=== PATIENT | female | born 1995 | race Caucasian/White ===

== ENCOUNTER 2017-08-21 08:54 | Emergency (ER) | payer OTHER ==
[~2017-08-21] VITALS: Ht 165.1 cm; Wt 91.0 kg
[2017-08-21 08:57] VITALS: TEMP 36.8; Ht 165.1 cm; Wt 91.0 kg
[2017-08-21 09:06] VITALS: O2SAT 99
[2017-08-21] MEDS ORDERED: DiphenhydrAMINE HCL 50 MG/ML VIAL IV STA (09:08)
[2017-08-21] MEDS ORDERED: METHYLPREDNISOLONE 125 MG VIAL IV STA (09:08)
[2017-08-21] MEDS ORDERED: RANITIDINE HCL 50 MG/100 ML D5W IV STA (09:08)
--- NOTE | 2017-08-21 09:27 | EMERGENCY ROOM VISIT NOTE ---
History Report prepared by Sharath: [address] Under the Supervision of: Dr. Justin Burgos M.D. First contact with patient: 09:04 Chief Complaint: ALLERGIC REACTION Stated Complaint: SOB,ALLERGIC REACTION History of Present Illness The patient is a 22 year old female who presents to the Emergency Room with complaints of an episode of an allergic reaction beginning last night. The patient states that she developed hives last night. She took Benadryl and went to sleep. When she woke up this morning the hives were worse. They are located diffusely across her body. She states that they feel very itchy. The patient also reports shortness of breath and itchy swollen eyes. She did not take any Benadryl this morning. She has been coughing. She denies feeling like her throat is closing. The patient notes that she has allergies to multiple medications but denies any food allergies. She has seen an solid tire tuber machine operator in the past. She does not have an Epi pen. She has not taken any medications that she is allergic to. She is not sure what could be causing her reaction. She denies any changes in her environment. She does report that she was recently taking Avelox and finished her last dose of the medication yesterday. Source of History: patient Onset: last night Position: other (global) Quality: other (itchy) Timing: worsening Associated Symptoms: + cough, + SOB, + rash Review of Systems See HPI for pertinent positives & negatives. A total of 10 systems reviewed and were otherwise negative. Past Medical & Surgical Medical Problems: (1) Asthma Family History No pertinent history stated. Social History Smoking Status: Never Smoker Marital Status: single Housing Status: lives with roommate Occupation Status: [place] [employer] student Current/Historical Medications Scheduled Control Pills ( Control Pills), 1 TAB PO DAILY Mometasone Furoate-Formoterol (Dulera 200/5 Mcg), 1 AER INH BID Prednisone (Prednisone), 50 MG PO DAILY Scheduled PRN Tramadol (Ultram), 50 MG PO Q8H PRN for Pain Allergies Coded Allergies: Albuterol (Unverified Allergy, Severe, TACHYCARDIC,DIZZY,NAUSEAS, 08/21/17) Cephalosporins (Unverified Allergy, Severe, TARGET LESIONS, 08/21/17) Penicillins (Unverified Allergy, Severe, TARGET LESIONS, 08/21/17) Physical Exam Vital Signs Date Time Temp Pulse Resp B/P (MAP) Pulse Ox O2 Delivery O2 Flow Rate FiO2 08/21/17 12:06 90 18 119/78 99 08/21/17 10:40 90 18 112/66 97 Room Air 08/21/17 09:35 92 18 121/83 98 Room Air 08/21/17 09:15 100 08/21/17 09:06 99 Room Air 08/21/17 09:04 Room Air 08/21/17 08:57 36.8 112 20 145/91 99 Room Air Physical Exam GENERAL: Patient is in no acute distress. HEENT: No acute trauma, normocephalic atraumatic, mucous membranes moist, no nasal congestion, no scleral icterus, some edema noted around the eyes. No uvular edema. NECK: No stridor, no adenopathy, no meningismus, trachea is midline. LUNGS: Clear to auscultation bilaterally, no wheeze, no rhonchi, breath sounds equal. HEART: Mildly tachycardic, no murmurs, regular rhythm. ABDOMEN: Soft, nontender, bowel sounds positive, no hernias, no peritonitis. EXTREMITIES: No cyanosis or edema, full range of motion of all the joints without pain or difficulty, no signs for acute trauma. NEUROLOGIC: Oriented x 3, no acute motor or sensory deficits, no focal weakness. SKIN: No jaundice, scattered erythematous slightly raised lesions consistent with urticaria. Medical Decision & Procedures Medications Administered Medications (Trade) Dose Ordered Sig/Ashvin Route Start Time Stop Time Status Last Admin Dose Admin Diphenhydramine HCl (Benadryl Inj) 50 mg NOW STAT IV 08/21/17 09:08 08/21/17 09:10 DC 08/21/17 09:21 50 MG Methylprednisolone Sodium Succinate (Solu-Medrol IV) 125 mg NOW STAT IV 08/21/17 09:08 08/21/17 09:10 DC 08/21/17 09:21 125 MG Ranitidine HCl (zANTac IV) 50 mg NOW STAT IV 08/21/17 09:08 08/21/17 09:10 DC 08/21/17 09:35 50 MG ED Course 0904: The patient was evaluated in room B2. A complete history and physical exam was performed. 09: Zantac 50 mg IV, Solu-Medrol 125 mg IV, Benadryl 50 mg IV 1129: I reassessed the patient at this time. She is feeling better and resting comfortably. I discussed the results and treatment plan with the patient. I answered all pertaining questions that she had. She expressed understanding and verbalized agreement. The patient will be discharged home. Medical Decision Differential diagnoses includes environmental allergy, food allergy, allergic reaction, uvular edema, anaphylaxis, wheezing, medication reaction. The patient presents with urticaria and some tightness in her chest. She has a history of medication allergies although she has not been recently exposed to any of these meds. She's had hives since last night and felt they were worse this morning. The patient received IV Zantac, IV Benadryl and IV Solu-Medrol. She was watched here for several hours. She feels improved, her hives are fading, she has no wheezing and she is not hypoxic. The patient is being discharged with prednisone and Benadryl. She will need to talk with her solid tire tuber machine operator about this reaction. At this point, the cause for her allergic reaction is unclear. If things are worsening, she should return. Medication Reconcilliation Current Medication List: was personally reviewed by me Blood Pressure Screening Patient's blood pressure: Normal blood pressure Impression Primary Impression: Allergic reaction Additional Impression: Urticaria Scribe Attestation The scribe's documentation has been prepared under my direction and personally reviewed by me in its entirety. I confirm that the note above accurately reflects all work, treatment, procedures, and medical decision making performed by me. Departure Information Dispostion Home / Self-Care Prescriptions Prednisone (Prednisone) 50 Mg Tab 50 MG PO DAILY for 4 Days, #4 TAB Prov: Justin Burgos M.D. 08/21/17 Referrals No Doctor, Assigned (PCP) Forms HOME CARE DOCUMENTATION FORM, IMPORTANT VISIT INFORMATION Patient Instructions My [facility] [employer] Additional Instructions benadryl 2 tabs 3x per day for next 4 days prednisone daily for 4 more days return for worsening symptoms see an solid tire tuber machine operator when able as we discussed Problem Qualifiers Primary Impression: Allergic reaction Encounter type: initial encounter Qualified Codes: T78.40XA - Allergy, unspecified, initial encounter
[2017-08-21] MEDS ORDERED: BCPILLS PO (09:39)
[2017-08-21] MEDS ORDERED: TRAM-10 PO (09:39)
[2017-08-21] MEDS ORDERED: MOME200A INH (09:39)
[2017-08-21] MEDS ORDERED: PRED50TA PO (11:35)
[2017-08-21 12:06] VITALS: BP 119/78; PULSE 90; O2SAT 99
== END 2017-08-21 12:07 | disposition home or self-care (01) ==
LOC: C.EDB 08:56
DX: T78.40XA Allergy, unspecified, initial encounter (principal); X58.XXXA Exposure to other specified factors, initial encounter; L50.9 Urticaria, unspecified; J45.909 Unspecified asthma, uncomplicated; Z79.3 Long term (current) use of hormonal contraceptives; Z88.0 Allergy status to penicillin; Z88.1 Allergy status to other antibiotic agents; Z88.9 Allergy status to unspecified drugs, medicaments and biological substances